=== PATIENT | female | born 1980 | race Caucasian/White ===

== ENCOUNTER 2016-07-10 13:43 | Emergency (ER) | payer OTHER ==
[~2016-07-10 13:43] MED LIST: NITR100C PO
[2016-07-10 13:46] VITALS: BP 123/75
--- NOTE | 2016-07-10 14:09 | PHYS DOC ---
Past Medical History Past Medical History: No Pertinent History Past Surgical History: Smoking: Less than 1pk/day Alcohol Use: Occasionally Drug Use: None Adult General Chief Complaint Chief Complaint: EARACHE/EAR PAIN HPI HPI Patient is a 35 year old female who presents with left earache for 2 weeks. She denies fever, nasal congestion, sore throat, cough, or drainage from the ear. She does not have a PCP. Review of Systems Review of Systems Constitutional: Denies fever or chills. [] Eyes: Denies change in visual acuity, redness, or eye pain. [] HENT: Denies nasal congestion or sore throat. Reports left ear pain. Respiratory: Denies cough or shortness of breath. [] Integument: Denies rash or skin lesions. [] Neurologic: Denies headache, focal weakness or sensory changes. [] Allergies Allergies Allergies Coded Allergies Type Severity Reaction Last Updated Verified Penicillins Allergy Intermediate UNKNOWN 07/10/16 Yes Physical Exam Physical Exam Constitutional: Well developed, well nourished, no acute distress, non-toxic appearance. [] HENT: Normocephalic, atraumatic, bilateral external ears normal, oropharynx moist, no oral exudates, nose normal. Bilateral TMs obscured by cerumen. There is no posterior pharyngeal erythema or tonsillar edema. Bilateral nasal turbinates are swollen and erythematous. Eyes: PERRLA, EOMI, conjunctiva normal, no discharge. [] Neck: Normal range of motion, no tenderness, supple, no stridor. [] Skin: Warm, dry, no erythema, no rash. [] Neurologic: Alert and oriented X 3, normal motor function, normal sensory function, no focal deficits noted. [] Psychologic: Affect normal, judgement normal, mood normal. [] Current Patient Data Vital Signs Vital Signs Date Time Temp Pulse Resp B/P Pulse Ox O2 Delivery O2 Flow Rate FiO2 07/10/16 13:46 97.9 72 16 97 Room Air 97.9 EKG EKG [] Radiology/Procedures Radiology/Procedures [] Course & Med Decision Making Course & Med Decision Making Pertinent Labs and Imaging studies reviewed. (See chart for details) Patient is irrigated by ED RN with removal of a large amount of cerumen from the left ear canal. A small amount was removed via irrigation from the right ear canal. A large amount of cerumen was removed via ear cuvette by myself from the right ear canal. Examination after cerumen removal reveals bilateral TMs without erythema or bulging. There is no relation of the TMs. The patient tolerated cerumen removal well without complication. Dragon Disclaimer Dragon Disclaimer This electronic medical record was generated, in whole or in part, using a voice recognition dictation system. Departure Departure Impression: Primary Impression: Otalgia of left ear Additional Impression: Cerumen impaction Disposition: 01 HOME, SELF-CARE Condition: IMPROVED Referrals: NO PCP (PCP) Patient Instructions: Cerumen Impaction, Otalgia-Brief Additional Instructions: There is no infection of the ears. The wax was removed from your ear canals. Please use the prescribed nasal spray daily to help decrease the swelling and drainage from your nose to help decrease pressure and pain in your ears. You may use [id number] Debrox ear drops to loosen wax and prevent wax buildup in your ears. Return to the emergency department if you have any new or concerning symptoms. Scripts Fluticasone Propionate (Flonase Allergy Relief)9.9 Ml [place].susp2 Sprays NS DAILY #1 BOTTLE Prov:KEYANA CASTRO 07/10/16 Problem Qualifiers Additional Impression: Cerumen impaction Laterality: bilateral Qualified Code: H61.23 - Impacted cerumen, bilateral KEYANA CASTRO Jul 10, 2016 14:09
[2016-07-10] MEDS ORDERED: FLUT9.9S NS (15:13)
== END 2016-07-10 15:21 | disposition home or self-care (01) ==
LOC: ER 13:43
DX: H61.23 Impacted cerumen, bilateral (principal); F17.200 Nicotine dependence, unspecified, uncomplicated; Z88.0 Allergy status to penicillin
CPT/HCPCS: 69210; 99284-25